=== PATIENT | male | born 1955 | race Caucasian/White ===

== ENCOUNTER → 2016-07-09 | Day surgery (SDC) | payer OTHER ==
[~2016-07-09] VITALS: Ht 190.5 cm; Wt 110.7 kg
== END | disposition home or self-care (01) ==
LOC: FAS 09:45
DX: K40.91 Unilateral inguinal hernia, without obstruction or gangrene, recurrent (principal); K40.90 Unilateral inguinal hernia, without obstruction or gangrene, not specified as recurrent; K42.0 Umbilical hernia with obstruction, without gangrene; D17.6 Benign lipomatous neoplasm of spermatic cord; H26.9 Unspecified cataract; Z90.49 Acquired absence of other specified parts of digestive tract; Z98.890 Other specified postprocedural states; Z82.49 Family history of ischemic heart disease and other diseases of the circulatory system; Z87.891 Personal history of nicotine dependence
CPT/HCPCS: C1781; J0690; J2405; J2704; J2710; J3010

== ENCOUNTER → 2021-06-09 | Day surgery (SDC) | payer OTHER ==
[~2021-06-09] VITALS: Ht 190.5 cm; Wt 113.4 kg
[~2021-06-09] MED LIST: ATORVASTATIN CA10 MG PO; CYMBALTA 30MG C30 MG PO; CYMBALTA60 MG PO; DULOXETINE HCL60 MG PO; HYDROCODON-ACE1 EAC2 PO; LIDOCAINE30 G1 TOP; MELOXICAM15 MG PO; METFORMIN HCL500 M1 PO; MIRALAX17 GM PO; NARCAN4 MG; NORCO 7.5-3251 EACH PO; OXYCODON-ACETA1 EAC1 PO; PERCOCET 7.5/321 TAB PO; PROSCAR5 MG PO; TAMSULOSIN HCL0.4 MG PO
[2021-06-09 07:35] LABS: BUN/CREAT RATIO (CALC) 12.3 RATIO; CREATININE 0.81 mg/dL (0.67-1.17); POTASSIUM 4.3 mmol/L (3.5-5.1)
== END | disposition home or self-care (01) ==
LOC: FAS 06:18
PROVIDERS: Pain Medicine Interventional Pain Medicine
DX: G89.28 Other chronic postprocedural pain (principal); G89.29 Other chronic pain; R10.30 Lower abdominal pain, unspecified
CPT/HCPCS: 36415; 72100; 76000; 80048; 93005; C1897; J0690; J1885; J2001; J2250; J2704; J3010; J7120